=== PATIENT | female | born 1995 | race Caucasian/White ===

== ENCOUNTER 2020-02-11 16:38 | Emergency (ER) | payer OTHER ==
[~2020-02-11] VITALS: Ht 170.2 cm; Wt 68.2 kg
[2020-02-11 17:21] LABS: COVID AG,FIA SOURCE NASOPHARYNGEAL
[2020-02-11 18:31] VITALS: BP 110/69
== END 2020-02-11 19:36 | disposition home or self-care (01) ==
LOC: EMS 16:38
DX: Z20.828 Contact with and (suspected) exposure to other viral communicable diseases (principal)
CPT/HCPCS: 87426